=== PATIENT | male | born 1960 | race Caucasian/White ===

== ENCOUNTER 2020-09-27 07:31 | Outpatient (CLI) | payer BC | END 2020-09-27 07:32 | disposition home or self-care (01) | LOC: SCSMRI 07:31 | PROVIDERS: ATTEND Orthopaedic Surgery | DX: M25.561 Pain in right knee (principal); S76.111A Strain of right quadriceps muscle, fascia and tendon, initial encounter; S83.411A Sprain of medial collateral ligament of right knee, initial encounter; M22.2X1 Patellofemoral disorders, right knee; M22.8X1 Other disorders of patella, right knee ==

== ENCOUNTER 2020-10-05 09:41 | Outpatient (CLI) | payer BC ==
[2020-10-05 12:15] LABS: #Eosinphils 0.1 10x3/uL (0.0-0.5); #Monocytes 0.4 10x3/uL (0.0-1.1); #Neutrophils 2.8 10x3/uL (1.5-8.4); %Basophils 0.6 % (0.0-2.0); %Eosinophils 2.1 % (0.0-6.0); %Lymphocytes 36.8 % (18.0-47.0); %Monocytes 8.3 % (0.0-10.0); %Neutrophils 51.8 % (40.0-75.0); Mean Corpuscular HGB CONC 34.2 g/dL (32.0-36.0); Mean Corpuscular Hemoglobin 29.6 pg (27.0-33.0); Mean Corpuscular Volume 86.6 fl (81.2-95.1); Mean Platelet Volume 11.4 fl (7.4-10.4); Platelet Count 188 10x3/uL (150-450); Red Blood Cell (RBC) Count 5.07 10x6/uL (4.32-5.72); White Blood Cell (WBC) Count 5.3 10x3/uL (3.5-10.5)
[2020-10-05 12:38] LABS: Anion Gap 14 mmol/L (10-20); BUN (Urea Nitrogen) 16 mg/dL (8.4-25.7); Calc. Creatinine Clearance 0 mL/min (70-130); Calcium 10.2 mg/dL (7.8-10.44); Carbon Dioxide 22 mmol/L (22-29); Chloride 108 mmol/L (98-107); Glucose 84 mg/dL (70-105); Potassium 4.6 mmol/L (3.5-5.1); Sodium 139 mmol/L (136-145)
== END 2020-10-05 09:42 | disposition home or self-care (01) ==
LOC: LABBT 09:41
PROVIDERS: ATTEND Orthopaedic Surgery
DX: Z01.812 Encounter for preprocedural laboratory examination (principal); S76.111A Strain of right quadriceps muscle, fascia and tendon, initial encounter
CPT/HCPCS: 80048; 85025

== ENCOUNTER 2020-10-10 09:15 | Day surgery (SDC) | payer BC ==
[2020-10-09 11:51] VITALS: BMI 40.0
[2020-10-10] MEDS ORDERED: Fentanyl 100 MCG/2 ML VIAL ONE ×4 (10:25→14:48)
[2020-10-10] MEDS ORDERED: Midazolam HCl 2 mg/2 ml Vial ONE (10:25)
[2020-10-10] MEDS ORDERED: ePHEDrine Sulfate 50 MG/10 ML VIAL ONE (12:45)
[2020-10-10] MEDS ORDERED: Lidocaine 1% PF 5 ML VIAL ONE (12:45)
[2020-10-10] MEDS ORDERED: PROPOFOL 200 MG/20 ML VIAL ONE (12:45)
[2020-10-10] MEDS ORDERED: Bupivacaine HCl 0.5%/Epinephrine 1:200,000/PF 30 ml Vial ONE (12:45)
[2020-10-10] MEDS ORDERED: Ketorolac Tromethamine 30 MG/ML VIAL ONE (12:45)
[2020-10-10] MEDS ORDERED: Succinylcholine 200 MG/10 ml SYRINGE FS ONE (12:45)
[2020-10-10] MEDS ORDERED: Ondansetron PF 4 MG/2 ML Vial ONE (12:45)
[2020-10-10] MEDS ORDERED: HYDROcodone/Acetaminophen 5/325 mg Tablet ONE (16:06)
== END 2020-10-10 16:10 | disposition home or self-care (01) ==
LOC: SDC 09:15
PROVIDERS: ATTEND Orthopaedic Surgery
PROC: 0LQL0ZZ Repair Right Upper Leg Tendon, Open Approach (ICD-10-PCS; principal; 2020-10-10)
PROC: 3E0T3BZ Introduction of Anesthetic Agent into Peripheral Nerves and Plexi, Percutaneous Approach (ICD-10-PCS; 2020-10-10)
DX: S76.111A Strain of right quadriceps muscle, fascia and tendon, initial encounter (principal); M17.9 Osteoarthritis of knee, unspecified; E78.2 Mixed hyperlipidemia; Z79.899 Other long term (current) drug therapy; X50.1XXA Overexertion from prolonged static or awkward postures, initial encounter
CPT/HCPCS: C1713; J0690; J1885; J2250; J2405; J2704; J3010; L1830

== ENCOUNTER 2020-11-20 17:57 | Emergency (ER) | payer BC | END 2020-11-20 20:30 | disposition left against medical advice (07) | LOC: ERS 17:57 | DX: Z53.21 Procedure and treatment not carried out due to patient leaving prior to being seen by health care provider (principal) | CPT/HCPCS: 93970 ==